=== PATIENT | male | born 2000 | race Caucasian/White ===

== ENCOUNTER 2022-04-13 11:12 | Emergency (ER) | payer OTHER ==
[~2022-04-13] VITALS: Ht 175.3 cm; Wt 78.2 kg
[2022-04-13 11:17] VITALS: BP 136/84; TEMP 98.4
[2022-04-13] MEDS ORDERED: NORCO 325 MG-51 TAB PO (11:56)
[2022-04-13 12:02] VITALS: PULSE 64
== END 2022-04-13 12:02 | disposition home or self-care (01) ==
LOC: COL.ER 11:12
DX: M54.50 Low back pain, unspecified (principal); Z28.310 Unvaccinated for COVID-19

== ENCOUNTER 2022-04-15 15:37 | Emergency (ER) | payer OTHER ==
[~2022-04-15] VITALS: Ht 175.3 cm; Wt 78.2 kg
[~2022-04-15 15:37] MED LIST: NORCO 325 MG-51 TAB PO
[2022-04-15 15:46] VITALS: TEMP 97.8
[2022-04-15 17:00] VITALS: BP 144/82; PULSE 99
== END 2022-04-15 17:00 | disposition home or self-care (01) ==
LOC: COL.ER 15:37
DX: M54.50 Low back pain, unspecified (principal); G89.29 Other chronic pain; Z28.310 Unvaccinated for COVID-19